=== PATIENT | female | born 1980 | race Two or more races ===

== ENCOUNTER 2025-07-13 02:42 | Emergency (ER) | payer MEDICAID ==
[~2025-07-13] VITALS: Ht 160 cm; Wt 70.0 kg
[2025-07-13 02:47] VITALS: BP 102/71; PULSE 74; RESP 14; TEMP 97.9; O2SAT 99
[2025-07-13 03:47] LABS: APPEARANCE,URINE CLEAR (CLEAR); GLUCOSE, URINE (UA) NEGATIVE (NEGATIVE); LEUKOCYTE ESTERASE ,URINE MODERATE (NEGATIVE); NITRATE,URINE NEGATIVE (NEGATIVE); OCCULT BLOOD,URINE NEGATIVE (NEGATIVE); SPECIFIC GRAVITIY, URINE 1.004 (1.003-1.030)
[2025-07-13] MEDS ORDERED: CEPH-558 PO (04:05)
[2025-07-13 04:16] LABS: SQUAMOUS EPITHELIAL CELL,UR Rare /LPF (None Seen)
[2025-07-13 04:23] LABS: HCG,QUAL URINE NEGATIVE (NEGATIVE)
== END 2025-07-13 04:14 | disposition home or self-care (01) ==
LOC: EMS 02:42
DX: N39.0 Urinary tract infection, site not specified (principal); Z90.721 Acquired absence of ovaries, unilateral
CPT/HCPCS: 81001; 84703; 99283

== ENCOUNTER 2025-08-22 20:01 | Emergency (ER) | payer MEDICAID ==
[~2025-08-22] VITALS: Ht 167.6 cm; Wt 75.0 kg
[~2025-08-22 20:01] MED LIST: CEPH-558 PO
[2025-08-22 20:26] VITALS: TEMP 98.5
[2025-08-22 20:49] LABS: APPEARANCE,URINE HAZY (CLEAR); GLUCOSE, URINE (UA) NEGATIVE (NEGATIVE); LEUKOCYTE ESTERASE ,URINE LARGE (NEGATIVE); NITRATE,URINE NEGATIVE (NEGATIVE); OCCULT BLOOD,URINE MODERATE (NEGATIVE); SPECIFIC GRAVITIY, URINE 1.027 (1.003-1.030)
[2025-08-22 21:03] LABS: PLATELET COUNT (AUTO) 188 K/uL (150-450); RED BLOOD CELL COUNT(AUTO) 4.46 MIL/uL (4.00-5.20); RED CELL DISTRIBUTION WIDTH 13.0 % (11.5-14.5); WHITE BLOOD COUNT (AUTO) 6.9 K/uL (4.5-11.0)
[2025-08-22 21:03] LABS: SQUAMOUS EPITHELIAL CELL,UR Rare /LPF (None Seen)
[2025-08-22 21:13] LABS: CALCIUM, TOTAL 8.2 mg/dL (8.8-10.5); CREATININE 0.90 mg/dL (0.60-1.30); GLOMERULAR FILTR. RATE CALC > 60 mL/min (>60); GLUCOSE,RANDOM 148 mg/dL (70-110); SODIUM SERUM 140 mmol/L (136-145); UREA NITROGEN, BLOOD 20 mg/dL (7-18)
[2025-08-22 23:30] VITALS: BP 107/79; PULSE 78; RESP 16; O2SAT 99
[2025-08-22] MEDS ORDERED: CEPH-558 PO (23:56)
[2025-08-23] MEDS: LIDOCAINE/PF 1% 2 ML VIAL IM ONE (00:17)
[2025-08-23] MEDS: CefTRIAXone SODIUM 1 GM/VIAL IM ONE (00:17)
[2025-08-23] MEDS: IBUPROFEN 600 MG TABLET PO ONE (00:18)
== END 2025-08-23 00:30 | disposition home or self-care (01) ==
LOC: EMS 20:01
DX: N39.0 Urinary tract infection, site not specified (principal); Z90.721 Acquired absence of ovaries, unilateral; Z79.899 Other long term (current) drug therapy
CPT/HCPCS: 99283; 80048; 81001; 85025; 87077; 87086; 87186; 36415; 96372; J0696; J3490